=== PATIENT | male | born 2000 | race Hispanic/Latino ===

== ENCOUNTER 2019-09-25 10:25 | Emergency (ER) | payer OTHER ==
[~2019-09-25] VITALS: Ht 170.2 cm; Wt 112.0 kg
[2019-09-25] MEDS ORDERED: SODIUM CHLORIDE 0.9% 1000ML 1,000 ML IV STA (10:43)
[2019-09-25] MEDS ORDERED: FAMOTIDINE 20 MG/2 ML VIAL IV ONE (10:45)
[2019-09-25] MEDS ORDERED: ONDANSETRON HCL INJ 2MG/ML 2ML 2 MG/ML VIAL IV ONE (10:45)
[2019-09-25] MEDS ORDERED: FAMOTIDINE20 MG PO (10:53)
[2019-09-25] MEDS ORDERED: ZOFRAN4 MG SL (10:53)
[2019-09-25] MEDS ORDERED: MAALOX MAXIMUM355 ML PO (10:53)
[2019-09-25] MEDS ORDERED: SODIUM CHLORIDE 0.9% 1000ML 1,000 ML ONE (10:53)
--- NOTE | 2019-09-25 10:53 | Emergency Department Note ---
History of Present Illnes History of Present Illness Chief Complaint: General Medicine Complaints History of Present Illness This is a 18 year old male c/o mild epigastric pain n/v/d on and off for 2 weeks, no f/c. He also c/o left leg pain posterior leg pain. Historian: Patient Arrival Mode: Car [employer] Program Coordinator Required: No Onset (how long ago): week(s) (2) Radiation: Reports non-radiation Severity: mild Onset quality: gradual Duration (how long): week(s) Timing of current episode: intermittent Relieving factors: none Exacerbating factors: none Associated symptoms: Reports loss of appetite, Reports nausea/vomiting Treatments prior to arrival: none Past Medical/Family History Physician Review I have reviewed the patient's past medical and family history. Any updates have been documented here. Past Medical History Recent Fever: No Clinical Suspicion of Infectio: No New/Unexplained Change in Ment: No Past Medical History: None Past Surgical History: None Social History Smoking Cessation: Never Smoker Counseling Performed: No Alcohol Use: Social Any Illegal Drug Use: No TB Exposure/Symptoms: No Other Any Pre-Existing Lines (PICC,: No Review of Systems Review of Systems Constitutional: Reports no symptoms EENTM: Reports no symptoms Cardiovascular: Reports no symptoms Respiratory: Reports no symptoms Gastrointestinal: Reports as per HPI Genitourinary: Reports no symptoms Musculoskeletal: Reports as per HPI Integumentary: Reports no symptoms Neurological: Reports no symptoms Psychological: Reports no symptoms Endocrine: Reports no symptoms Hematological/Lymphatic: Reports no symptoms Physical Exam Related Data Allergies: Coded Allergies: No Known Allergies (Unverified , 09/25/19) Physical Exam CONSTITUTIONAL Constitutional: Present well-developed, Present well-nourished HENT HENT: Present normocephalic, Present atraumatic, Present oropharynx clear/moist, Present mucosae dry, Present nose normal HENT L/R: Present left ext ear normal, Present right ext ear normal EYES Eyes: Reports PERRL, Reports conjunctivae normal NECK Neck: Present ROM normal PULMONARY Pulmonary: Present effort normal, Present breath sounds normal CARDIOVASCULAR Cardiovascular: Present regular rhythm, Present heart sounds normal, Present capillary refill normal, Present normal rate GASTROINTESTINAL Abdominal: Present soft, Present nontender, Present bowel sounds normal GENITOURINARY Genitourinary: Present exam deferred SKIN Skin: Present warm, Present dry MUSCULOSKELETAL Musculoskeletal: Present ROM normal NEUROLOGICAL Neurological: Present alert, Present oriented x 3, Present no gross motor or sensory deficits PSYCHOLOGICAL Psychological: Present mood/affect normal, Present judgement normal Results Laboratory Lab results reviewed: Yes Laboratory comments ddimer negative, doubt DVT Diagnostics Tests Diagnostic test(s) reviewed: Yes Assessment & Plan Medical Decision Making MDM likely gastroenteritis Assessment & Plan Final Impression: (1) Gastroenteritis (2) Dehydration Depart Disposition: HOME, SELF-retirement Meds Active Scripts Mag Hydrox/Al Hydrox/Simeth (MAALOX MAXIMUM STRENGTH SUSP) 355 Ml Oral.susp, 30 ML PO Q6H PRN for ABDOMINAL PAIN, #120 ML Prov:ELADIA HOLLY MD 09/25/19 Ondansetron Hcl* (ZOFRAN*) 4 Mg Tablet, 4 MG SL Q6H PRN for NAUSEA, #14 MG 0 Refills Prov:ELADIA HOLLY MD 09/25/19 Famotidine (FAMOTIDINE) 20 Mg Tab, 20 MG PO BID, #30 TAB Prov:ELADIA HOLLY MD 09/25/19 ELADIA HOLLY MD Sep 25, 2019 10:53
[2019-09-25] MEDS ORDERED: ONDANSETRON HCL INJ 2MG/ML 2ML 2 MG/ML VIAL IV NR (11:15)
[2019-09-25 11:49] VITALS: BP 119/65
== END 2019-09-25 11:57 | disposition home or self-care (01) ==
LOC: FSED 10:33
DX: R10.13 Epigastric pain (principal); K52.9 Noninfective gastroenteritis and colitis, unspecified; R11.2 Nausea with vomiting, unspecified; E86.0 Dehydration
CPT/HCPCS: 80048; 80076; 81003; 85025; 85379; 96374; 96375; 99283; J2405; J7030